=== PATIENT | male | born 1990 | race Caucasian/White ===

== ENCOUNTER 2024-12-23 13:09 | Emergency (ER) | payer SELFPAY ==
[~2024-12-23] VITALS: Ht 172.7 cm; Wt 65.0 kg
[2024-12-23 13:17] VITALS: O2SAT 94
[2024-12-23 13:52] LABS: CREATININE 1.3 mg/dL (0.6-1.3)
[2024-12-23 13:53] LABS: UREA NITROGEN BLOOD 10 mg/dL (9-23)
[2024-12-23 14:10] LABS: BASOPHILS % 0.3 % (0.0-2.0); EOSINOPHILS % 1.6 % (0.0-5.0); HEMATOCRIT. 47.6 % (42.0-52.0); HEMOGLOBIN. 15.5 g/dL (14.0-18.0); LYMPHOCYTES % 11.4 % (20.0-50.0); MONOCYTES % 11.7 % (2.0-8.0); NEUTROPHILS % 75.0 % (40.0-76.0); RED BLOOD CELL COUNT 4.86 mill/uL (4.7-6.1); RED CELL DISTRIBUTION WIDTH 14.6 % (11.6-14.6)
[2024-12-23] MEDS: IPRATROPIUM/ALBUTEROL 0.5-3(2.5)MG/3ML NEB HHN ONE (15:11)
[2024-12-23 15:12] VITALS: PULSE 92; RESP 18
[2024-12-23 15:20] LABS: INR 1.0
[2024-12-23 15:23] LABS: TROPONIN I HIGH SENSITIVITY < 4 ng/L (3.0-53)
[2024-12-23 15:24] LABS: ASPARTATE AMINOTRANSFERASE 18 IU/L (<34); BILIRUBIN DIRECT 0.4 mg/dL (<=3.0); BILIRUBIN TOTAL 1.2 mg/dL (0.1-1.0); PROTEIN TOTAL 7.6 g/dL (6.0-8.3)
[2024-12-23] MEDS: AMOXICILLIN/POTASSIUM CLAVULANATE 875/125MG TAB PO ONE (15:31)
[2024-12-23] MEDS: AZITHROMYCIN 500 MG TABLET PO ONE (15:33)
[2024-12-23] MEDS: PREDNISONE 20MG TABLET PO ONE (15:33)
[2024-12-23] MEDS ORDERED: AZIT250T12 MT (15:39)
[2024-12-23] MEDS ORDERED: ALBU90AE INH (15:39)
[2024-12-23] MEDS ORDERED: AMOX1TAB16 MT (15:39)
[2024-12-23] MEDS ORDERED: P50 MT (15:39)
[2024-12-23 15:48] LABS: ADD RBC MORPHOLOGY YES; PLATELET 148 x1000/uL (130-400); PLATELET ESTIMATE NORMAL
[2024-12-23 16:10] VITALS: BP 139/82; PULSE 83; RESP 16; TEMP 37.4; O2SAT 94
[2024-12-23 16:48] LABS: INFLUENZA TYPE A Presumptive Negative (Pres. Neg.); INFLUENZA TYPE B Presumptive Negative (Pres. Neg.)
[2024-12-23 16:49] LABS: RESPIRATORY SYNCYTIAL VIRUS Not Detected (Not Detectd)
== END 2024-12-23 16:12 | disposition home or self-care (01) ==
LOC: EDBD 13:09 → ER 13:09
DX: J45.901 Unspecified asthma with (acute) exacerbation (principal); J18.9 Pneumonia, unspecified organism; F10.90 Alcohol use, unspecified, uncomplicated; F12.90 Cannabis use, unspecified, uncomplicated; Z79.52 Long term (current) use of systemic steroids; Z87.891 Personal history of nicotine dependence; Z20.822 Contact with and (suspected) exposure to COVID-19; Y90.9 Presence of alcohol in blood, level not specified
CPT/HCPCS: 80076; 80048; 83880; 83690; 85025; 85610; 87420; 84484; 87804 ×2; 36415; 71045; 94640; 93005; 99285; 87426; J7512; Z7610 ×3; 94070; 94664; 98960